=== PATIENT | female | born 1995 | race Hispanic/Latino ===

== ENCOUNTER 2020-06-25 15:15 | Observation (INO) | payer SELFPAY ==
[2020-06-25 16:09] VITALS: BMI 31.8
--- NOTE | 2020-06-25 16:49 | PDOC.FPRHP ---
- History of Present Illness Chief Complaint: abdominal pain History of Present Illness: Patient is a 25F with no PMHx that presented to the ED earlier today after experiencing approximately 9 days of abdominal pain. She reports that the abdominal pain was both in the upper and lower abdomen, both right and left. She states that at first the pain was only at night, and for the last few days it was constant without improvement so she decided to go to the ED. She denies n/v/d. Reports the pain was worse with walking and improved with sitting on the toilet. Denies hematochezia, melena, dysuria. LMP 05/31/20. Denies experiencing this type of pain before. Denies pain being worse after eating. Denies fever. During the time of the evaluation she was not in any pain. She had decreased PO intake today only because she spent the day in the ED. ED Course: at outside hospital: toradol, zofran, 1L NS bolus, zosyn. - Allergies/Adverse Reactions Allergies Allergy/AdvReac Type Severity Reaction Status Date / Time No Known Allergies Allergy Unverified 06/25/20 15:59 - Home Medications Medication Instructions Recorded Confirmed Type No Known 06/25/20 06/25/20 History - History PMHx: None PSHx: None FHx: Mother-colon ca age 67 Social: denies smoking, alcohol use, drug use - Review of Systems General: denies: fever/chills, weight/appetite/sleep changes Eyes: denies: eye pain, vision changes ENT: denies: nasal congestion, rhinorrhea Respiratory: denies: cough, shortness of breath Cardiovascular: denies: chest pain, edema Gastrointestinal: reports: abdominal pain. denies: nausea, vomiting, diarrhea, constipation Genitourinary: denies: incontinence, dysuria, polyuria Skin: denies: rashes, jaundice Musculoskeletal: denies: pain, tenderness, stiffness Neurological: denies: syncope, seizure Psychological: denies: anxiety, depression - Vital signs BP: [110/64] HR: [93] RR: [18] Tmax: [99.0F] Pox: [100]% on [RA] Wt: [73.936kg] - Physical Exam Constitutional: NAD, awake, alert and oriented, well developed HEENT: normocephalic and atraumatic, EOMI, conjunctiva clear, no scleral icterus Neck: supple, FROM, trachea midline Heart: RRR -Heart: holosystolic murmur Lungs: CTAB, no respiratory distress, good air movement Abdomen: soft, non-tender, bowel sounds present, no masses/distention Musculoskeletal: normal structure, ROM grossly normal Neurological: no focal deficit, normal sensation Skin: no rash/lesions, good turgor, capillary refill <2 seconds Heme/Lymphatic: no unusual bruising or bleeding, no purpura Psychiatric: normal mood and affect, intact recent and remote memory FMR H&P: A/P - Plan 1. Abdominal pain likely 2/2 ruptured ovarian cyst vs cholecycistitis vs constipation -diffuse abdominal pain over the last 9 days, constant -patient endorses constipation -no pain on exam, no pain on admission -CT abd showing cholelithiasis with early cholecystitis in the differential and free fluid in the cul de sac and a collapsing 2 cm cyst in the right ovary. a moderate amount of fecal material is seen in the colon, mainly on the right side -WBC 13 -urinalysis, test negative -will see how patient tolerates PO. if pain returns, consider RUQ U/s and surgery consult -PRN tylenol, ibuprofen, bowel regimen Diet: Regular DVTppx: SCDs Dispo: admitted to medical obs; anticipated LOS <48 hours Code: Full PCP: JORGE LUIS FMR H&P: Upper Level - Pertinent history Patient is a 25F with no PMHx that presented after 9days of diffuse abdominal pain that was intermittent and started to become constant. Denies n/v/d, denies fever. Continues to have regular BM's. Denies dysuria. Has not experienced this type of pain before. LMP 05/31/20. Patient states the pain improves with sitting on the toilet and worsens with walking. Denies hematochezia or melena. Denies pain worsens with eating. Denies any abdominal pain currently. - Pertinent findings CT demonstrates findings c/w cholelithiasis without being able to r/o early cholecystitis. Also demonstrates probable collapsing cyst in the R ovary with free intraperitoneal fluid. Moderate amount of stool right side of colon. Deformed left kidney, benign. - Plan Date/Time: 06/25/201648 I, [Laurie Mae MD], have evaluated this patient and agree with findings/plan as outlined by supervisor international reservations resident. Pertinent changes/additions are listed here. #Abdominal pain, uncertain etiology -patient reports pain x 9 days, at first at night and worse with walking, constant x 3 days; in no pain now -pain not worsened with food -pain not present during exam -CT: cholelithiasis, with some gallbladder wall thickening suggestive of possible early cholecystitis -villalba sign negative -story not consistent with cholecystitis; pain not worse after eating, pain constant throughout the day -CT: probable collapsing cyst in the R ovary measuring 2cm, with small free intraperitoneal fluid in the pelvic cul-de-sca -possible source of the patient's pain -LMP 05/31/20, urine test negative -CT: moderate amount of fecal material is seen in the colon, much of which on the right side -patient reports she had a bowl movement this morning, less likely constipation contributing to the pain -will place patient on bowel regimen -Urinalysis negative for leukocytes, nitrites, bacteria -Will let patient eat tonight and monitor for pain. If patient has pain, can consider NPO with abdominal RUQ U/S #Leukocytosis -possibly related to inflammation -patient denies fever -will get procal #Deformed left kidney -benign, likely developmental -aware Diet: Regular DVTppx: donna score 1, encourage ambulation Dispo: admitted to medical obs; will monitor pain toleration with diet, possible d/c in morning pending pain Code: Full PCP: CC Addendum - Attending - Attending Attestation Date/Time: 06/25/20 [id number] I personally evaluated the patient and discussed the management with Dr. Barber I agree with the History, Examination, Assessment and Plan documented above with any addition or exceptions noted below.
[2020-06-25] MEDS ORDERED: Calcium Carbonate 500 MG ChewTAB PO PRN (16:56)
[2020-06-25] MEDS ORDERED: Acetaminophen 325 MG TAB PO PRN (16:56)
[2020-06-25] MEDS ORDERED: Ondansetron ODT 4 MG TAB PO PRN (16:56)
[2020-06-25] MEDS ORDERED: Ibuprofen 600 MG TAB PO PRN (17:27)
[2020-06-25] MEDS: Senokot S 8.6-50 MG TAB PO SCH (21:29)
[2020-06-25] MEDS: Famotidine 20 MG TAB PO SCH (21:29)
--- NOTE | 2020-06-26 06:21 | PDOC.FM ---
- Subjective Subjective: Patient doing well this morning. Ate last night without any pain. Denies N/V, diarrhea, fever, chills. She said she had an episode with 2/10 abdominal pain last night in the RUQ, epigastric and LUQ that was random that went away, but it did not wake her up. She slept well. She is constipated. She wants to go home. - Objective MAR Reviewed: Yes Vital Signs & Weight: Vital Signs (12 hours) Temp Pulse Resp BP Pulse Ox 06/26/20 04:05 98.4 F 83 18 98/55 L 83 L 06/26/20 00:26 100 06/26/20 00:20 97.6 F 91 18 111/55 L 98 06/25/20 20:00 98.2 F 92 18 118/61 100 Weight Weight 73.936 kg Result Diagrams: 06/26/20 06:30 06/26/20 06:30 Phys Exam - Physical Examination Constitutional: NAD HEENT: moist MMs Neck: full ROM Respiratory: no wheezing, clear to auscultation bilateral Cardiovascular: RRR Gastrointestinal: soft, non-tender, no distention, positive bowel sounds Neurological: moves all 4 limbs Psychiatric: normal affect, A&O x 3 Skin: normal turgor Dx/Plan - Plan Plan: 1. Abdominal pain likely 2/2 ruptured ovarian cyst vs cholecycistitis vs constipation -diffuse abdominal pain over the last 9 days, constant -patient endorses constipation -no pain on exam, no pain on admission -CT abd showing cholelithiasis with early cholecystitis in the differential and free fluid in the cul de sac and a collapsing 2 cm cyst in the right ovary. a moderate amount of fecal material is seen in the colon, mainly on the right side -WBC 13, Tbili, AST, ALT normal -urinalysis, test negative -PRN tylenol, ibuprofen, bowel regimen -patient tolerated dinner without difficulty, if patient tolerates breakfast, will discharge today. Consider outpatient RUQ U/s if pain resumes Diet: Regular DVTppx: SCDs Dispo: admitted to medical obs; anticipated LOS <48 hours Code: Full PCP: CC Addendum - Attending - Attending Attestation Date/Time: 06/26/20 [id number] I personally evaluated the patient and discussed the management with Dr. Barber I agree with the History, Examination, Assessment and Plan documented above with any addition or exceptions noted below. Patient tolerating po no further significant abdominal pain she remains afebrile. Patient abdominal pain c/w ruptured ovarian cyst . Discussed in detail cholelithiasis and indications precaution for surgery rec outpatient Surgery f/u as needed.
[2020-06-26 07:04] LABS: #Eosinphils 0.1 thou/uL (0.0-0.7); #Lymphocytes 1.8 thou/uL (1.20-3.40); #Monocytes 0.7 thou/uL (0.11-0.59); #Neutrophils 7.1 thou/uL (1.40-6.50); %Basophils 0.4 % (0.0-1.0); %Eosinophils 0.8 % (0.0-10.0); %Lymphocytes 18.6 % (21.0-51.0); %Monocytes 6.7 % (0.0-10.0); %Neutrophils 73.5 % (42.0-75.0); Hemoglobin 12.3 g/dL (12.0-16.0); Mean Corpuscular HGB CONC 33.5 g/dL (32.0-36.0); Mean Corpuscular Hemoglobin 29.2 pg (27.0-31.0); Mean Corpuscular Volume 87.2 fL (78.0-98.0); Platelet Count 150 thou/uL (130-400); RBC Distribution Width 12.3 % (11.5-14.5); White Blood Cell (WBC) Count 9.7 thou/uL (4.8-10.8)
[2020-06-26 07:36] LABS: ALT (SGPT) 25 U/L (8-55); AST (SGOT) 19 U/L (5-34); Albumin 3.9 g/dL (3.5-5.0); Alkaline Phosphatase 72 U/L (40-110); Anion Gap 13 mmol/L (10-20); BUN (Urea Nitrogen) 13 mg/dL (7.0-18.7); Bilirubin, Total 0.6 mg/dL (0.2-1.2); Calc. Creatinine Clearance 128 mL/min (70-130); Calcium 8.8 mg/dL (7.8-10.44); Carbon Dioxide 23 mmol/L (22-29); Chloride 106 mmol/L (98-107); Estimated GFR-MDRD 89; Globulin 2.9 g/dL (2.4-3.5); Glucose 90 mg/dL (70-105); Potassium 3.5 mmol/L (3.5-5.1); Protein, Total 6.8 g/dL (6.0-8.3); Sodium 138 mmol/L (136-145)
[2020-06-26] MEDS: Famotidine 20 MG TAB PO SCH (08:51)
[2020-06-26] MEDS: Senokot S 8.6-50 MG TAB PO SCH (08:51)
[2020-06-26] MEDS ORDERED: Polyethylene Glycol 3350 17 GM Packet PO SCH (09:00)
[2020-06-26 12:19] LABS: SARS-CoV-2 MS2 Positive; SARS-CoV-2 N Gene Negative; SARS-CoV-2 S Gene Negative; SARS-CoV-2 by NAA Not Detected (NotDetected); SARS-CoV-2 orf1ab Negative
[2020-06-26 13:09] VITALS: BP 122/60; TEMP 98.4
--- NOTE | 2020-06-27 07:11 | DIS ---
DATE OF ADMISSION: 06/25/2020 DATE OF DISCHARGE: 06/26/2020 RESIDENT: Tori Barber MD, PGY-1 ADMITTING ATTENDING: Ubaldo Glover MD DISCHARGE ATTENDING: Ubaldo Glover MD CONSULTS: None. PROCEDURES: At an outside facility include a CT abdomen showing cholelithiasis with early cholecystitis in differential and free fluid in the cul-de-sac and a collapsing 2-cm cyst in the right ovary. A moderate amount of fecal material is seen in the colon, mainly on the right side. Urinalysis, which is negative. PRIMARY DIAGNOSIS: Abdominal pain, likely secondary to ruptured ovarian cyst versus constipation. SECONDARY DIAGNOSIS: cholelithiasis DISCHARGE MEDICATIONS: 1. MiraLAX 17 g p.o. daily. 2. Motrin 600 mg p.o. q.6 hours as needed. 3. Tylenol 650 mg p.o. q.4 hours as needed. HOSPITAL COURSE: The patient is a 25-year-old female with no past medical history, who presented to an outside ER after experiencing about 9 days of abdominal pain. She reports that the abdominal pain was both in the upper and lower abdomen, both right and left. She states that first the pain was only at night and the last few days, it was constant without improvement, so she decided to go to the ER. She denies any nausea, vomiting, diarrhea, or fever. The patient says the pain is worse with walking and improved with sitting on the toilet. She denies hematochezia, melena, or dysuria. Her last menstrual period was 05/31/2020. She denies any pain like this in the past. She denies pain being worse after eating. During the time of evaluation, the patient is not in any pain. She had decreased intake on the day of admission, only because she has been today in the ER, otherwise tolerating PO without difficulty. Once she was sent over to our facility, the patient was experiencing no abdominal pain after receiving Toradol, Zofran, a liter of bolus, and Zosyn at the outside ED. The patient was able to tolerate dinner without any pain. The patient's vitals remained stable throughout her stay. The day after admission, the patient was able to eat breakfast without any pain as well. The patient's labs were normal with no white count. Her total bilirubin and liver enzymes were also normal. DISPOSITION: Stable. DISCHARGE INSTRUCTIONS: 1. Location: Home. 2. Diet: No restrictions. 3. Activity: As tolerated. 4. Followup: Follow up with Dr. Barber at [facility] within the week for hospital followup and to establish care. Job ID: [id number]
== END 2020-06-26 15:09 | disposition home or self-care (01) ==
LOC: 3SE 15:39 → 3SW 18:31
PROVIDERS: ADMIT Family Medicine; ATTEND Family Medicine
DX: R10.84 Generalized abdominal pain (principal); K80.10 Calculus of gallbladder with chronic cholecystitis without obstruction; N83.201 Unspecified ovarian cyst, right side; D72.829 Elevated white blood cell count, unspecified; Q63.9 Congenital malformation of kidney, unspecified
CPT/HCPCS: 36415; 80053; 84145; 85025; 87635; G0378; U0003

== ENCOUNTER 2022-07-29 03:10 | Inpatient (IN) | payer SELFPAY ==
[2022-07-29] MEDS ORDERED: Ondansetron PF 4 MG/2 ML Vial ONE (03:28)
[2022-07-29 04:04] LABS: #Lymphocytes 1.5 thou/uL (1.20-3.40); #Monocytes 0.6 thou/uL (0.11-0.59); #Neutrophils 8.6 thou/uL (1.40-6.50); %Basophils 0.2 % (0.0-1.0); %Eosinophils 0.2 % (0.0-10.0); %Lymphocytes 13.9 % (21.0-51.0); %Monocytes 5.7 % (0.0-10.0); %Neutrophils 80.1 % (42.0-75.0); Hemoglobin 14.2 g/dL (12.0-16.0); Mean Corpuscular HGB CONC 34.3 g/dL (32.0-36.0); Mean Corpuscular Hemoglobin 30.5 pg (27.0-31.0); Mean Platelet Volume 10.8 fL (7.4-10.4); Platelet Count 157 10x3/uL (130-400); RBC Distribution Width 12.5 % (11.5-14.5); Red Blood Cell (RBC) Count 4.64 mill/uL (4.20-5.40); White Blood Cell (WBC) Count 10.8 10x3/uL (4.8-10.8)
[2022-07-29 04:10] LABS: BHCG - Serum Negative (NEGATIVE); Pregs Control Background? CLEAR/WHITE (CLR/WHITE); Pregs Control Bar Appear? YES (CONTROL BAR)
[2022-07-29 04:35] LABS: ALT (SGPT) 1072 U/L (8-55); AST (SGOT) 507 U/L (5-34); Albumin 4.5 g/dL (3.5-5.0); Alkaline Phosphatase 223 U/L (40-110); Anion Gap 18 mmol/L (10-20); BUN (Urea Nitrogen) 8 mg/dL (7.0-18.7); Bilirubin, Total 7.1 mg/dL (0.2-1.2); Calc. Creatinine Clearance 0 mL/min (70-130); Calcium 9.8 mg/dL (7.8-10.44); Carbon Dioxide 21 mmol/L (22-29); Chloride 101 mmol/L (98-107); Estimated GFR 101; Globulin 3.5 g/dL (2.4-3.5); Glucose 89 mg/dL (70-105); Lipase 16 U/L (8-78); Potassium 3.7 mmol/L (3.5-5.1); Sodium 136 mmol/L (136-145)
[2022-07-29] MEDS ORDERED: Ketorolac Tromethamine 30 MG/ML VIAL ONE (04:38)
[2022-07-29] MEDS ORDERED: Piperacillin/Tazobactam 3.375 GM VIAL ONE (04:38)
[2022-07-29] MEDS ORDERED: Morphine 4 MG/ML VIAL ONE (04:38)
[2022-07-29 05:10] LABS: Bilirubin 1+ (Negative); Blood, Urine Negative (Negative); Clarity Clear (Clear); Glucose, Urine (Dipstick) Normal (Negative); Ketone, Urine 150 mg/dL (Negative); Leukocyte Negative Leu/uL (Negative); Nitrite Negative (Negative); Protein, Urine (Dipstick) 10 mg/dL (Neg-Trace); Specific Gravity, Urine 1.014 (1.002-1.036); pH, Urine 5.5 (5.0-9.0)
[2022-07-29] MEDS ORDERED: Acetaminophen 650 MG Suppository PR PRN (05:42)
[2022-07-29] MEDS ORDERED: Acetaminophen 325 MG TAB PO PRN (05:42)
[2022-07-29] MEDS ORDERED: Morphine 4 MG/ML VIAL SLOW IVP PRN (05:42)
[2022-07-29] MEDS ORDERED: Sodium Chloride 0.9% 1,000 ML IV SCH (05:45)
[2022-07-29] MEDS ORDERED: Ondansetron ODT 4 MG TAB SL PRN (05:45)
[2022-07-29] MEDS ORDERED: Ondansetron PF 4 MG/2 ML Vial IVP PRN (05:45)
[2022-07-29 06:29] VITALS: BMI 26.2
[2022-07-29] MEDS: Sodium Chloride 0.9% 1,000 ML IV SCH ×2 (06:36→14:07)
[2022-07-29 07:12] LABS: SARS-CoV-2 NAA Rapid Test Not Detected (NotDetected)
[2022-07-29] MEDS ORDERED: Piperacillin/Tazobactam 3.375 GM in Sodium Chloride 0.9% 100 ML IVPB SCH (09:00)
[2022-07-29] MEDS: Piperacillin/Tazobactam 3.375 GM in Sodium Chloride 0.9% 100 ML IVPB SCH ×2 (09:34→16:54)
[2022-07-29] MEDS: Morphine 4 MG/ML VIAL SLOW IVP PRN (14:09)
[2022-07-30] MEDS: Piperacillin/Tazobactam 3.375 GM in Sodium Chloride 0.9% 100 ML IVPB SCH ×3 (00:02→20:35)
[2022-07-30] MEDS: Morphine 4 MG/ML VIAL SLOW IVP PRN ×2 (00:10→08:19)
[2022-07-30] MEDS: Sodium Chloride 0.9% 1,000 ML IV SCH ×3 (06:33→22:46)
[2022-07-30] MEDS ORDERED: Ondansetron PF 4 MG/2 ML Vial IVP PRN (08:35)
[2022-07-30 09:15] LABS: INR-International Normal Ratio 1.1; Prothrombin Time 14.4 sec (12.0-14.7)
[2022-07-30 09:22] LABS: #Eosinphils 0.1 thou/uL (0.0-0.7); #Lymphocytes 1.5 thou/uL (1.20-3.40); #Monocytes 0.6 thou/uL (0.11-0.59); #Neutrophils 5.9 thou/uL (1.40-6.50); %Basophils 0.6 % (0.0-1.0); %Eosinophils 0.7 % (0.0-10.0); %Lymphocytes 18.8 % (21.0-51.0); %Monocytes 7.8 % (0.0-10.0); %Neutrophils 72.2 % (42.0-75.0); Hemoglobin 12.6 g/dL (12.0-16.0); Mean Corpuscular HGB CONC 33.1 g/dL (32.0-36.0); Mean Corpuscular Hemoglobin 30.3 pg (27.0-31.0); Mean Corpuscular Volume 91.4 fl (78.0-98.0); Mean Platelet Volume 10.3 fL (7.4-10.4); Platelet Count 139 10x3/uL (130-400); RBC Distribution Width 12.9 % (11.5-14.5); Red Blood Cell (RBC) Count 4.15 mill/uL (4.20-5.40); White Blood Cell (WBC) Count 8.2 10x3/uL (4.8-10.8)
[2022-07-30 09:26] LABS: ALT (SGPT) 798 U/L (8-55); AST (SGOT) 299 U/L (5-34); Albumin 3.7 g/dL (3.5-5.0); Alkaline Phosphatase 203 U/L (40-110); Anion Gap 11 mmol/L (10-20); BUN (Urea Nitrogen) 5 mg/dL (7.0-18.7); Bilirubin, Total 7.2 mg/dL (0.2-1.2); Calc. Creatinine Clearance 114 mL/min (70-130); Calcium 8.8 mg/dL (7.8-10.44); Carbon Dioxide 24 mmol/L (22-29); Chloride 104 mmol/L (98-107); Estimated GFR 108; Globulin 2.8 g/dL (2.4-3.5); Glucose 96 mg/dL (70-105); Potassium 3.3 mmol/L (3.5-5.1); Protein, Total 6.5 g/dL (6.0-8.3); Sodium 136 mmol/L (136-145)
[2022-07-30] MEDS ORDERED: Indomethacin 50 MG SUPP ONE ×2 (11:41→16:19)
[2022-07-30] MEDS ORDERED: Potassium Chloride 40 MEQ in Premix Bag 1 BAG IVPB SCH (13:30)
[2022-07-30] MEDS ORDERED: Morphine 4 MG/ML VIAL ONE ×2 (16:18→16:56)
[2022-07-30] MEDS ORDERED: Piperacillin/Tazobactam 3.375 GM VIAL ONE (16:49)
[2022-07-30] MEDS ORDERED: Sodium Chloride 0.9% 100 ML ONE (16:49)
[2022-07-30] MEDS ORDERED: PROPOFOL 200 MG/20 ML VIAL ONE (17:38)
[2022-07-30] MEDS ORDERED: Lidocaine 1% PF 5 ML VIAL ONE (17:38)
[2022-07-30] MEDS ORDERED: Rocuronium Bromide 10 MG/ML (10ML VIAL) ONE (17:38)
[2022-07-30] MEDS ORDERED: ePHEDrine 50 MG/ML VIAL ONE (17:38)
[2022-07-30] MEDS ORDERED: Dexamethasone 20 MG/5 ML VIAL ONE (17:38)
[2022-07-30] MEDS ORDERED: Ondansetron PF 4 MG/2 ML Vial ONE (17:38)
[2022-07-30] MEDS: Lactated Ringer's 1,000 ML IV SCH (20:36)
[2022-07-30] MEDS: Potassium Chloride 20 MEQ in Premix Bag 1 BAG IVPB SCH ×3 (20:37→23:21)
[2022-07-31] MEDS: Piperacillin/Tazobactam 3.375 GM in Sodium Chloride 0.9% 100 ML IVPB SCH ×3 (01:34→16:03)
[2022-07-31] MEDS: Lactated Ringer's 1,000 ML IV SCH ×3 (01:34→16:03)
[2022-07-31] MEDS: Morphine 4 MG/ML VIAL SLOW IVP PRN ×3 (05:49→19:51)
[2022-07-31 06:59] LABS: ALT (SGPT) 697 U/L (8-55); AST (SGOT) 273 U/L (5-34); Albumin 3.3 g/dL (3.5-5.0); Alkaline Phosphatase 199 U/L (40-110); Anion Gap 14 mmol/L (10-20); BUN (Urea Nitrogen) 5 mg/dL (7.0-18.7); Bilirubin, Total 6.6 mg/dL (0.2-1.2); Calc. Creatinine Clearance 122 mL/min (70-130); Calcium 8.6 mg/dL (7.8-10.44); Carbon Dioxide 21 mmol/L (22-29); Chloride 105 mmol/L (98-107); Estimated GFR 117; Globulin 2.7 g/dL (2.4-3.5); Glucose 101 mg/dL (70-105); Lipase 117 U/L (8-78); Potassium 3.7 mmol/L (3.5-5.1); Sodium 136 mmol/L (136-145)
[2022-07-31] MEDS: Sodium Chloride 0.9% 1,000 ML IV SCH (07:13)
[2022-07-31] MEDS ORDERED: Indomethacin 50 MG SUPP PR SCH (14:00)
[2022-07-31] MEDS ORDERED: Magnevist 469MG/ML 20 ML VIAL ONE (15:47)
[2022-08-01] MEDS: Piperacillin/Tazobactam 3.375 GM in Sodium Chloride 0.9% 100 ML IVPB SCH ×3 (01:00→18:45)
[2022-08-01] MEDS: Morphine 4 MG/ML VIAL SLOW IVP PRN (04:48)
[2022-08-01] MEDS: Lactated Ringer's 1,000 ML IV SCH ×2 (05:12→12:22)
[2022-08-01 06:16] LABS: #Lymphocytes 1.6 thou/uL (1.20-3.40); #Monocytes 0.6 thou/uL (0.11-0.59); #Neutrophils 6.2 thou/uL (1.40-6.50); %Basophils 0.4 % (0.0-1.0); %Eosinophils 0.5 % (0.0-10.0); %Lymphocytes 18.9 % (21.0-51.0); %Monocytes 7.2 % (0.0-10.0); %Neutrophils 73.1 % (42.0-75.0); Hemoglobin 11.9 g/dL (12.0-16.0); Mean Corpuscular HGB CONC 33.2 g/dL (32.0-36.0); Mean Corpuscular Hemoglobin 30.3 pg (27.0-31.0); Mean Corpuscular Volume 91.2 fl (78.0-98.0); Platelet Count 117 10x3/uL (130-400); Red Blood Cell (RBC) Count 3.95 mill/uL (4.20-5.40); White Blood Cell (WBC) Count 8.5 10x3/uL (4.8-10.8)
[2022-08-01 06:38] LABS: ALT (SGPT) 695 U/L (8-55); AST (SGOT) 266 U/L (5-34); Albumin 3.3 g/dL (3.5-5.0); Alkaline Phosphatase 224 U/L (40-110); Anion Gap 15 mmol/L (10-20); BUN (Urea Nitrogen) 5 mg/dL (7.0-18.7); Bilirubin, Total 7.8 mg/dL (0.2-1.2); Calc. Creatinine Clearance 122 mL/min (70-130); Calcium 8.8 mg/dL (7.8-10.44); Carbon Dioxide 23 mmol/L (22-29); Chloride 102 mmol/L (98-107); Estimated GFR 117; Globulin 2.7 g/dL (2.4-3.5); Glucose 85 mg/dL (70-105); Lipase 417 U/L (8-78); Potassium 3.2 mmol/L (3.5-5.1); Sodium 137 mmol/L (136-145)
[2022-08-01 06:39] LABS: ALT (SGPT) 691 U/L (8-55); AST (SGOT) 264 U/L (5-34); Albumin 3.3 g/dL (3.5-5.0); Alkaline Phosphatase 224 U/L (40-110); Bilirubin, Direct 5.9 mg/dL (0.1-0.3); Bilirubin, Total 7.7 mg/dL (0.2-1.2)
[2022-08-01] MEDS ORDERED: Iopamidol 30 ML ONE (07:08)
[2022-08-01] MEDS ORDERED: Famotidine/PF 20 mg/2ml Vial ONE (07:45)
[2022-08-01] MEDS ORDERED: Fentanyl 100 MCG/2 ML VIAL ONE (07:45)
[2022-08-01] MEDS ORDERED: SUGAMMADEX SODIUM 200 MG/2 ML VIAL ONE (07:50)
[2022-08-01] MEDS ORDERED: Indomethacin 50 MG SUPP ONE (07:59)
[2022-08-01] MEDS ORDERED: Lidocaine 1% PF 5 ML VIAL ONE (08:14)
[2022-08-01] MEDS ORDERED: Ondansetron PF 4 MG/2 ML Vial ONE (08:14)
[2022-08-01] MEDS ORDERED: Dexamethasone 20 MG/5 ML VIAL ONE (08:14)
[2022-08-01] MEDS ORDERED: ePHEDrine 50 MG/ML VIAL ONE (08:14)
[2022-08-01] MEDS ORDERED: Rocuronium Bromide 10 MG/ML (10ML VIAL) ONE (08:14)
[2022-08-01] MEDS ORDERED: Succinylcholine Chloride 100 MG/5 ML SYRINGE FS ONE (08:14)
[2022-08-01] MEDS ORDERED: PROPOFOL 200 MG/20 ML VIAL ONE (08:14)
[2022-08-01] MEDS ORDERED: Ondansetron HCl/PF 4 MG/2 ML Vial IVP PRN (08:54)
[2022-08-01] MEDS ORDERED: Promethazine HCl 25 MG/ML VIAL IVPB PRN (08:54)
[2022-08-01] MEDS ORDERED: Promethazine HCl 25 MG/ML VIAL IM PRN (08:54)
[2022-08-01] MEDS ORDERED: Morphine Sulfate 2 MG/ML SYRINGE SLOW IVP PRN (08:54)
[2022-08-01] MEDS ORDERED: HYDROmorphone 2 MG/ML VIAL SLOW IVP PRN (08:54)
[2022-08-01] MEDS ORDERED: Meperidine HCl/PF 25 MG/ML VIAL SLOW IVP PRN (08:54)
[2022-08-01] MEDS: Potassium Chloride 20 MEQ in Premix Bag 1 BAG IVPB SCH ×2 (12:18→15:16)
[2022-08-02] MEDS: Lactated Ringer's 1,000 ML IV SCH ×2 (00:59→08:02)
[2022-08-02] MEDS: Piperacillin/Tazobactam 3.375 GM in Sodium Chloride 0.9% 100 ML IVPB SCH ×2 (00:59→09:19)
[2022-08-02 07:31] LABS: #Monocytes 0.6 thou/uL (0.11-0.59); #Neutrophils 7.1 thou/uL (1.40-6.50); %Basophils 0.2 % (0.0-1.0); %Eosinophils 0.5 % (0.0-10.0); %Lymphocytes 20.4 % (21.0-51.0); %Monocytes 5.8 % (0.0-10.0); %Neutrophils 73.1 % (42.0-75.0); Hemoglobin 11.7 g/dL (12.0-16.0); Mean Corpuscular HGB CONC 33.5 g/dL (32.0-36.0); Mean Corpuscular Hemoglobin 30.5 pg (27.0-31.0); Mean Corpuscular Volume 91.1 fl (78.0-98.0); Mean Platelet Volume 10.5 fL (7.4-10.4); Platelet Count 120 10x3/uL (130-400); RBC Distribution Width 12.8 % (11.5-14.5); Red Blood Cell (RBC) Count 3.85 mill/uL (4.20-5.40); White Blood Cell (WBC) Count 9.7 10x3/uL (4.8-10.8)
[2022-08-02 07:43] LABS: ALT (SGPT) 673 U/L (8-55); AST (SGOT) 241 U/L (5-34); Albumin 3.2 g/dL (3.5-5.0); Alkaline Phosphatase 229 U/L (40-110); Anion Gap 12 mmol/L (10-20); BUN (Urea Nitrogen) 8 mg/dL (7.0-18.7); Bilirubin, Total 4.3 mg/dL (0.2-1.2); Calc. Creatinine Clearance 111 mL/min (70-130); Carbon Dioxide 25 mmol/L (22-29); Chloride 104 mmol/L (98-107); Estimated GFR 104; Globulin 2.7 g/dL (2.4-3.5); Glucose 99 mg/dL (70-105); Lipase 61 U/L (8-78); Potassium 3.6 mmol/L (3.5-5.1); Protein, Total 5.9 g/dL (6.0-8.3); Sodium 137 mmol/L (136-145)
[2022-08-02] MEDS ORDERED: Midazolam HCl 2 mg/2 ml Vial ONE (08:45)
[2022-08-02] MEDS ORDERED: Fentanyl 250 MCG/5 ML VIAL ONE (08:45)
[2022-08-02] MEDS ORDERED: Bupivacaine/Epinephrine 0.25% 30 ML VIAL ONE (08:46)
[2022-08-02] MEDS ORDERED: Ondansetron HCl/PF 4 MG/2 ML Vial IVP PRN (09:38)
[2022-08-02] MEDS ORDERED: HYDROmorphone 2 MG/ML VIAL SLOW IVP PRN (09:38)
[2022-08-02] MEDS ORDERED: Promethazine HCl 25 MG/ML VIAL IVPB PRN (09:38)
[2022-08-02] MEDS ORDERED: Promethazine HCl 25 MG/ML VIAL IM PRN (09:38)
[2022-08-02] MEDS ORDERED: HYDROcodone/Acetaminophen 7.5/325 mg Tablet PO PRN (09:46)
[2022-08-02] MEDS ORDERED: FENTANYL 50 MCG/ML 1 ML VIAL SLOW IVP PRN (09:50)
[2022-08-02] MEDS ORDERED: Fentanyl 100 MCG/2 ML VIAL ONE ×3 (09:59→10:47)
[2022-08-02 15:50] VITALS: BP 115/77; TEMP 97.8
== END 2022-08-02 15:45 | disposition home or self-care (01) | DRG 419 ==
LOC: ERS 03:10 → SURG A 04:51 → OBSVTOIN 07-30 15:27
PROVIDERS: ADMIT Student in an Organized Health Care Education/Training Program; ATTEND Family Medicine
PROC: 0FJB8ZZ Inspection of Hepatobiliary Duct, Via Natural or Artificial Opening Endoscopic (ICD-10-PCS; 2022-07-30)
PROC: 0FC98ZZ Extirpation of Matter from Common Bile Duct, Via Natural or Artificial Opening Endoscopic (ICD-10-PCS; 2022-08-01)
PROC: BF101ZZ Fluoroscopy of Bile Ducts using Low Osmolar Contrast (ICD-10-PCS; 2022-08-01)
PROC: 0FT44ZZ Resection of Gallbladder, Percutaneous Endoscopic Approach (ICD-10-PCS; principal; 2022-08-02)
DX: K80.63 Calculus of gallbladder and bile duct with acute cholecystitis with obstruction (principal); Z20.822 Contact with and (suspected) exposure to COVID-19; E87.6 Hypokalemia; Z79.899 Other long term (current) drug therapy
CPT/HCPCS: 36415; 74183; 74330; 76705; 80053; 81003; 83690; 84703; 85025; 85610; 87086; 88304; 96374; 96375; A9579; C1725; C1889; J1100; J1610; J1885; J2250; J2270; J2405; J2543; J2704; J3010; J3480; J3490; J7050; J7120; Q9967; S0028; U0002